=== PATIENT | female | born 1980 | race Hispanic/Latino ===

== ENCOUNTER → 2017-12-17 | Outpatient (CLI) | payer OTHER ==
[~2017-12-17] MED LIST: IBUP-2077 PO; TYL3 PO
== END | disposition home or self-care (01) ==
LOC: RAH 14:01
PROVIDERS: ATTEND Specialist
DX: N63.10 Unspecified lump in the right breast, unspecified quadrant (principal); N64.3 Galactorrhea not associated with childbirth; R92.8 Other abnormal and inconclusive findings on diagnostic imaging of breast; Z80.3 Family history of malignant neoplasm of breast
CPT/HCPCS: 76641; 77062; 77066